=== PATIENT | female | born 1980 | race Caucasian/White ===

== ENCOUNTER 2021-03-24 16:10 | Emergency (ER) | payer BC ==
[2021-03-24] MEDS ORDERED: HYDROmorphone 1 MG/ML CARPUJECT IVP STA (16:21)
[2021-03-24] MEDS ORDERED: ONDANSETRON 4 MG/2 ML VIAL IVP STA (16:21)
[2021-03-24] MEDS ORDERED: SODIUM CHLORIDE 0.9% 1,000 ML IV STA ×2 (16:21→16:31)
--- NOTE | 2021-03-24 16:34 | ED Physician Documentation ---
History of Present Illness - Stated complaint Stated Complaint: VOMITING/DEHYDRATION - Chief complaint Chief Complaint: Abd Pain - Additonal information Additional information: 40-year-old female presents the emergency department for evaluation of vomiting and dehydration. She is currently undergoing every 28-day cycle of chemotherapy for ovarian cancer. Is currently managed through [facility]. Patient does require continuous TPN which she has infusing. She states that for the last 4 to 5 days her typical oral regimen of Zofran, Compazine and other antinausea meds are not working. At baseline she does have pedal edema as well as a known left lower extremity DVT. She is on Lovenox daily. She also has ascites which has not changed in volume. Denies any dysuria urgency or frequency. She reports a normal bowel movement today. States that she did have "food poisoning" a week ago in which she had diarrhea but none since. Pt lives in [place]. [place] mom [place] her is away as she needs care for her 3 year old. Review of Systems Constitutional: denies: Fever, Chills Eyes: reports: Reviewed and negative Nose: reports: Reviewed and negative Throat: reports: Reviewed and negative Cardiac: reports: Reviewed and negative Respiratory: denies: Dyspnea, Cough GI: reports: Abdominal Swelling (baselien ascites), Nausea, Vomiting, Diarrhea (1 week ago; normal BM today) : denies: Dysuria, Frequency, Hesitancy Skin: denies: Rash, Lesions Musculoskeletal: reports: Reviewed and negative Neurologic: reports: Reviewed and negative Psychiatric: reports: Reviewed and negative PD PAST MEDICAL HISTORY - Present Medications Home Medications: Ambulatory Orders Medication Instructions Recorded Confirmed Enoxaparin [Lovenox] 120 mg SUBQ Q24H 03/24/21 03/24/21 Hydromorphone HCl 2 mg ORAL Q4HR PRN 03/24/21 03/24/21 LORazepam [Ativan] 1 mg PO Q6HR PRN 03/24/21 03/24/21 Metoclopramide [Reglan] 10 mg PO Q6H PRN 03/24/21 03/24/21 OLANZapine [Olanzapine] 5 mg PO DAILY PM 03/24/21 03/24/21 Ondansetron [Ondansetron Odt] 8 mg PO Q8HR PRN 03/24/21 03/24/21 Pantoprazole [Protonix] 40 mg PO DAILY 03/24/21 03/24/21 - Allergies Allergies/Adverse Reactions: Allergies Allergy/AdvReac Type Severity Reaction Status Date / Time amoxicillin Allergy Rash Verified 03/24/21 16:13 PD ED PE EXPANDED - General General: Alert, Well developed/nourished - Cardiac Cardiac: Regular Rate, Tachy, Radial strong equal, Pedal strong equal, Cap refill < 2 sec - Respiratory Respiratory: Clear to ausultation alba. No: Distress, Labored - Abdomen Abdomen: Normal Bowel sounds, Distended, Other (palpable ascites). No: Tender to palpation, Rebound, Guarding - Derm Derm: Normal color, Warm and dry. No: Rash - Extremities Extremities: Normal, Tenderness (LLE calf. ), Pedal edema bilateral, Left calf TTP/cord. No: Deformity, Right calf TTP/cord - Neuro Neuro: Alert and Oriented X 3, CNII-XII intact - GCS Eye Opening: Spontaneous Motor: Obeys Commands Verbal: Oriented Total: 15 Results - Vitals Vitals: Vital Signs - 24 hr 03/24/21 03/24/21 03/24/21 16:13 16:43 18:26 Temperature 36.8 C 36.4 C L Heart Rate 138 H 119 H 115 H Respiratory 16 18 18 Rate Blood Pressure 118/90 H 123/89 H 121/84 H O2 Saturation 98 10 L 100 03/24/21 19:05 Temperature 36.5 C Heart Rate 117 H Respiratory 22 Rate Blood Pressure 124/84 H O2 Saturation 99 Oxygen O2 Source Room air - Labs Labs: Laboratory Tests 03/24/21 03/24/21 03/24/21 16:38 16:38 16:38 WBC 1.9 L* RBC 2.08 L Hgb 6.7 L* Hct 21.1 L MCV 101.4 H MCH 32.2 H MCHC 31.8 L RDW 16.7 H Plt Count 80 L MPV 10.5 Neut # (Auto) 1.6 Lymph # (Auto) 0.3 L [place] # (Auto) 0.0 Eos # (Auto) 0.0 Baso # (Auto) 0.0 Absolute Nucleated RBC 0.00 Band Neuts % (Manual) Not Reportable Abnorm Lymph % (Manual) Not Reportable Nucleated RBC % 0.0 Neutrophils # (Manual) Not Reportable Lymphocytes # (Manual) Not Reportable Monocytes # (Manual) Not Reportable Eosinophils # (Manual) Not Reportable Basophils # (Manual) Not Reportable Differential Comment MANUAL=AUTO DIFF Manual Slide Review Indicated Platelet Estimate DECREASED (<130,000) Platelet Morphology NORMAL APPEARANCE RBC Morph Micro Appear 3+ HYPOCHROMASIA Sodium Potassium Chloride Carbon Dioxide Anion Gap BUN Creatinine Estimated GFR (MDRD) Glucose Lactic Acid 1.7 Calcium Total Bilirubin AST ALT Alkaline Phosphatase Total Protein Albumin Globulin Albumin/Globulin Ratio Lipase Serum HCG, Qual Nasal Adenovirus (PCR) Nasal B. parapertussis DNA (PCR) Nasal Coronavir 229E PCR Nasal Coronavir HKU1 PCR Nasal Coronavir NL63 PCR Nasal Coronavir OC43 PCR Nasal Enterovir/Rhinovir PCR Nasal Influenza B PCR Nasal Influenza A PCR Nasal Parainfluen 1 PCR Nasal Parainfluen 2 PCR Nasal Parainfluen 3 PCR Nasal Parainfluen 4 PCR Nasal RSV (PCR) Nasal B.pertussis DNA PCR Nasal C.pneumoniae (PCR) Julio Human Metapneumo PCR Nasal M.pneumoniae (PCR) Nasal SARS-CoV-2 (PCR) Blood Type Blood Type Recheck A POSITIVE Antibody Screen Crossmatch IS Only 03/24/21 03/24/21 03/24/21 17:30 17:30 18:00 WBC RBC Hgb Hct MCV MCH MCHC RDW Plt Count MPV Neut # (Auto) Lymph # (Auto) [place] # (Auto) Eos # (Auto) Baso # (Auto) Absolute Nucleated RBC Band Neuts % (Manual) Abnorm Lymph % (Manual) Nucleated RBC % Neutrophils # (Manual) Lymphocytes # (Manual) Monocytes # (Manual) Eosinophils # (Manual) Basophils # (Manual) Differential Comment Manual Slide Review Platelet Estimate Platelet Morphology RBC Morph Micro Appear Sodium 137 Potassium 4.1 Chloride 105 Carbon Dioxide 24 Anion Gap 8.0 BUN 24 H Creatinine 0.3 L Estimated GFR (MDRD) 248 Glucose 92 Lactic Acid Calcium 8.5 Total Bilirubin 0.5 AST 18 ALT 24 Alkaline Phosphatase 106 Total Protein 5.6 L Albumin 2.1 L Globulin 3.5 Albumin/Globulin Ratio 0.6 L Lipase 43 Serum HCG, Qual NEGATIVE Nasal Adenovirus (PCR) Nasal B. parapertussis DNA (PCR) Nasal Coronavir 229E PCR Nasal Coronavir HKU1 PCR Nasal Coronavir NL63 PCR Nasal Coronavir OC43 PCR Nasal Enterovir/Rhinovir PCR Nasal Influenza B PCR Nasal Influenza A PCR Nasal Parainfluen 1 PCR Nasal Parainfluen 2 PCR Nasal Parainfluen 3 PCR Nasal Parainfluen 4 PCR Nasal RSV (PCR) Nasal B.pertussis DNA PCR Nasal C.pneumoniae (PCR) Julio Human Metapneumo PCR Nasal M.pneumoniae (PCR) Nasal SARS-CoV-2 (PCR) Blood Type A POSITIVE Blood Type Recheck Antibody Screen NEGATIVE Crossmatch IS Only See Detail 03/24/21 18:10 WBC RBC Hgb Hct MCV MCH MCHC RDW Plt Count MPV Neut # (Auto) Lymph # (Auto) [place] # (Auto) Eos # (Auto) Baso # (Auto) Absolute Nucleated RBC Band Neuts % (Manual) Abnorm Lymph % (Manual) Nucleated RBC % Neutrophils # (Manual) Lymphocytes # (Manual) Monocytes # (Manual) Eosinophils # (Manual) Basophils # (Manual) Differential Comment Manual Slide Review Platelet Estimate Platelet Morphology RBC Morph Micro Appear Sodium Potassium Chloride Carbon Dioxide Anion Gap BUN Creatinine Estimated GFR (MDRD) Glucose Lactic Acid Calcium Total Bilirubin AST ALT Alkaline Phosphatase Total Protein Albumin Globulin Albumin/Globulin Ratio Lipase Serum HCG, Qual Nasal Adenovirus (PCR) NOT DETECTED Nasal B. parapertussis DNA (PCR) NOT DETECTED Nasal Coronavir 229E PCR NOT DETECTED Nasal Coronavir HKU1 PCR NOT DETECTED Nasal Coronavir NL63 PCR NOT DETECTED Nasal Coronavir OC43 PCR NOT DETECTED Nasal Enterovir/Rhinovir PCR NOT DETECTED Nasal Influenza B PCR NOT DETECTED Nasal Influenza A PCR NOT DETECTED Nasal Parainfluen 1 PCR NOT DETECTED Nasal Parainfluen 2 PCR NOT DETECTED Nasal Parainfluen 3 PCR NOT DETECTED Nasal Parainfluen 4 PCR NOT DETECTED Nasal RSV (PCR) NOT DETECTED Nasal B.pertussis DNA PCR NOT DETECTED Nasal C.pneumoniae (PCR) NOT DETECTED Julio Human Metapneumo PCR NOT DETECTED Nasal M.pneumoniae (PCR) NOT DETECTED Nasal SARS-CoV-2 (PCR) NOT DETECTED Blood Type Blood Type Recheck Antibody Screen Crossmatch IS Only - Rads (name of study) CT abd Radiology: Final report received (And ascites with multiple small tissue nodules scattered throughout the peritoneum most compatible with metastatic disease with malignant ascites. Multiple dilated loops of small bowel which could represent small bowel obstruction or ileus.) PD MEDICAL DECISION MAKING - ED course Complexity details: reviewed results, d/w patient, d/w family, d/w networks software consultant ([place]) ED course: 40-year-old female who has a history of ovarian cancer undergoing 28-day doses of chemotherapy presents with uncontrolled nausea and vomiting. Has been unable to keep anything down about 4 to 5 days. Nausea and vomiting has been a well- known feature for her course with cancer but is no longer being managed with her typical home medications. She has had a normal bowel movement today. She is also on 24/7 TPN through a right upper chest port. 1800: I spoke onthe phone with Dr. Grimes Patient's on-call ore washer and oncologist through [facility]. Given the persistent nausea and vomiting as well as her anemia he is requesting a CT scan to rule out a bowel obstruction. He is also recommending transfer to [facility] for further evaluation of the nausea and vomiting. However should his CT scan show that she there is no obstruction and her nausea and vomiting improves with fluids he would be okay with discharge home and close follow-up as an outpatient. 1915: CT scan shows multiple dilated loops of small bowel likely consistent with early small bowel obstruction versus ileus. PRBC infusion is beginning. Patient will be transferred to [facility] for further evaluation of the bowel obstruction and her vomiting. Nausea has improved with IV fluids and Zofran. Appropriate COBRA paperwork completed. pt to be transferred [facility]S Departure - Departure Disposition: 02 Transfer Acute Care Hosp Clinical Impression: Small bowel obstruction, Malignant ascites Ovarian cancer Qualifiers: Laterality: unspecified laterality Qualified Code(s): C56.9 - Malignant neoplasm of unspecified ovary Vomiting Qualifiers: Vomiting type: unspecified Vomiting Intractability: non-intractable Nausea presence: with nausea Qualified Code(s): R11.2 - Nausea with vomiting, unspecified Anemia Qualifiers: Anemia type: other cause Other causes of anemia: other cause, not classified Qualified Code(s): D64.89 - Other specified anemias Neutropenia Qualifiers: Neutropenia type: secondary to cancer chemotherapy Qualified Code(s): D70.1 - Agranulocytosis secondary to cancer chemotherapy; T45.1X5A - Adverse effect of antineoplastic and immunosuppressive drugs, initial encounter
[2021-03-24 16:44] LABS: BASOPHILS % (AUTO) 0.5 %; HCT - HEMATOCRIT 21.1 % (37.0-47.0); LYMPHOCYTES # (AUTO) 0.3 10^3/uL (1.5-3.5); MEAN CORPUSCULAR HEMOGLOBIN 32.2 pg (27.0-31.0); MEAN CORPUSCULAR HGB CONC 31.8 g/dL (32.0-36.0); MEAN CORPUSCULAR VOLUME 101.4 fL (81.0-99.0); MEAN PLATELET VOLUME 10.5 fL (7.9-10.8); NEUTROPHILS # (AUTO) 1.6 10^3/uL (1.5-6.6); PLT - PLATELET COUNT 80 10^3/uL (130-450); RED BLOOD COUNT 2.08 10^6/uL (4.20-5.40); RED CELL DISTRIBUTION WIDTH 16.7 % (12.0-15.0)
[2021-03-24 16:51] LABS: HGB - HEMOGLOBIN 6.7 g/dL (12.0-16.0); SLIDE REVIEW? Indicated; WHITE BLOOD COUNT 1.9 x10^3/uL (4.8-10.8)
[2021-03-24 17:22] LABS: DIFFERENTIAL COMMENT MANUAL=AUTO DIFF; PLATELET ESTIMATE, MANUAL DECREASED (<130,000) (NORMAL); PLATELET MORPHOLOGY NORMAL APPEARANCE (NORMAL)
[2021-03-24 18:04] LABS: ALBUMIN 2.1 g/dL (3.2-5.5); ALBUMIN/GLOBULIN RATIO 0.6 (1.0-2.2); BILIRUBIN,TOTAL 0.5 mg/dL (0.2-1.0); CALCIUM 8.5 mg/dL (8.5-10.3); CREATININE 0.3 mg/dL (0.4-1.0); POTASSIUM 4.1 mmol/L (3.5-5.0); TOTAL PROTEIN 5.6 g/dL (6.7-8.2)
[2021-03-24 18:09] LABS: HCG,QUALITATIVE BLOOD NEGATIVE
[2021-03-24] MEDS ORDERED: IOPAMIDOL-300 50 ML VIAL ONE ×2 (18:24→18:25)
[2021-03-24] MEDS ORDERED: ACETAMINOPHEN 325 MG TABLET PO STA (18:48)
[2021-03-24] MEDS ORDERED: diphenhydrAMINE INJ 50 MG/ML VIAL IVP STA (18:48)
--- NOTE | 2021-03-24 19:08 | CT Report ---
PROCEDURE: Abdomen/Pelvis W INDICATIONS: r/o bowel obstruction CONTRAST: IV CONTRAST: Isovue 300 ml: 100 PO CONTRAST: *NO PO CONTRAST TECHNIQUE: After the administration of IV contrast, 5 mm thick sections acquired from the diaphragms to the symp hysis. 5 mm thick coronal and sagittal reformats were acquired. For radiation dose reduction, the f ollowing was used: automated exposure control, adjustment of mA and/or kV according to patient size. COMPARISON: None. FINDINGS: Image quality: Excellent. ABDOMEN: Lung bases: Lung bases are clear. Heart size is normal. Tip of central venous catheter noted in th e distal SVC. Solid organs: Liver and spleen are normal in size and enhancement. Gallbladder is within normal [place] its Biliary system is non dilated. Pancreas enhances normally. No adrenal nodules. Kidneys demons trate normal size and enhancement, without hydronephrosis. Peritoneum and bowel: Dilated loops of proximal small bowel noted measuring up to 4.0 cm. No free air . Large amount of ascites is noted. Multiple small soft tissue nodules are scattered throughout the p eritoneum suspicious for metastatic disease. Nodes and vessels: No retroperitoneal or mesenteric adenopathy by size criteria. Aorta and inferior vena cava are normal in size. Miscellaneous: No ventral hernias. PELVIS: Genitourinary: Bladder wall thickness is normal. Uterus is absent. Miscellaneous: No inguinal hernias or adenopathy. IVC filter noted. Bones: No suspicious bony lesions. No vertebral body compression fractures. IMPRESSION: 1. Large amount of ascites with multiple small soft tissue nodules scattered throughout the peritoneu m most compatible with metastatic disease with malignant ascites. 2. Multiple dilated loops of small bowel which could represent small bowel obstruction or ileus. Reviewed by: Estefani Land MD, PhD on 03/24/2021 7:07 PM PDT Approved by: Estefani Land MD, PhD on 03/24/2021 7:07 PM PDT Station ID: [id number]
[2021-03-24 19:10] LABS: B. PARAPERTUSSIS- RESP PCR PAN NOT DETECTED; B. PERTUSSIS- RESP PCR PANEL NOT DETECTED; C. PNEUMONIAE- RESP PCR PANEL NOT DETECTED; CORONAVIRUS 229E-RESP PCR NOT DETECTED; CORONAVIRUS HKU1-RESP PCR NOT DETECTED; CORONAVIRUS NL63-RESP PCR NOT DETECTED; CORONAVIRUS OC43-RESP PCR NOT DETECTED; HUMAN METAPNEUMOVIRUS NOT DETECTED; INFLUENZA A- RESP PCR PANEL NOT DETECTED; INFLUENZA B - RESP PCR PANEL NOT DETECTED; M. PNEUMONIAE- RESP PCR PANEL NOT DETECTED; PARAINFLUENZA VIRUS 1 NOT DETECTED; PARAINFLUENZA VIRUS 2 NOT DETECTED; PARAINFLUENZA VIRUS 3 NOT DETECTED; PARAINFLUENZA VIRUS 4 NOT DETECTED; RHINOVIRUS/ENTEROVIRUS NOT DETECTED; RSV- RESP PCR PANEL NOT DETECTED; SARS-CoV-2 -RESP PCR PANEL NOT DETECTED
[2021-03-24 19:37] VITALS: BP 126/83
[2021-03-24] MEDS ORDERED: IOPAMIDOL-300 50 ML VIAL IVP ONE (19:59)
== END 2021-03-24 20:07 | disposition short-term general hospital (02) ==
LOC: ED 16:10
DX: K56.609 Unspecified intestinal obstruction, unspecified as to partial versus complete obstruction (principal); C56.9 Malignant neoplasm of unspecified ovary; D63.0 Anemia in neoplastic disease; R18.0 Malignant ascites; Z20.822 Contact with and (suspected) exposure to COVID-19
CPT/HCPCS: 0202U; 36415; 36430; 74177; 80053; 83605; 83690; 84703; 85025; 86850; 86900; 86901; 86920; 96374; 96375; 99284; 99285; A9270; J1170; J1200; P9040; Q9967

== ENCOUNTER 2021-03-24 19:58 | Outpatient (CLI) | payer BC | END 2021-03-24 19:59 | disposition short-term general hospital (02) | LOC: EMS 19:58 | PROVIDERS: ATTEND Registered Nurse | DX: R11.2 Nausea with vomiting, unspecified (principal); R18.8 Other ascites; D64.9 Anemia, unspecified; C56.9 Malignant neoplasm of unspecified ovary | CPT/HCPCS: A0425; A0426 ==